=== PATIENT | female | born 1965 | race Caucasian/White ===

== ENCOUNTER 2023-09-07 10:23 | Outpatient (OUT) | payer OTHER, SELFPAY ==
--- NOTE | 2023-09-07 10:26 | MM_ITS ---
Patient Name: BHAKTI JEREZ MR#: [id number] : 1965 Exam Date: 09/07/2023 Ordering Doctor: DR TYESHA BALDERAS . RADIOLOGY REPORT PROCEDURE: MM TOMOSYNTHESIS SCREENING BI COMPARISON: MG MAMM SCREEN 3D BETTINA CAD, 08/17/2021. MG MAMM SCREEN 3D BETTINA CAD, 09/05/2022. INDICATIONS: Screening Calculator Name NCI Breast Cancer Risk Assessment Tool 5 Year Breast Cancer Risk 1.40% Lifetime Breast Cancer Risk 8.70% Personal Breast Cancer No Personal Ovarian Cancer No Treatments Excision Family Cancers None LOCATION: [facility] BREAST COMPOSITION: Extremely dense, which lowers the sensitivity of mammography. FINDINGS: DIAGNOSTIC CATEGORY 2--BENIGN FINDING. NO CHANGE FROM COMPARISON. Scattered benign-appearing lymph nodes are present. RIGHT BREAST: No significant suspicious finding. LEFT BREAST: No significant suspicious finding. RECOMMENDATIONS: ROUTINE MAMMOGRAM AND CLINICAL EVALUATION IN 12 MONTHS. PLEASE NOTE: A NORMAL MAMMOGRAM DOES NOT EXCLUDE THE POSSIBILITY OF BREAST CANCER. A CLINICALLY SUSPICIOUS PALPABLE LUMP SHOULD BE BIOPSIED. Dictated by: Canelo Saunders MD on 09/07/2023 at 13:53 Approved by: Canelo Saunders MD on 09/07/2023 at 13:56
== END 2023-09-07 10:24 | disposition home or self-care (01) ==
LOC: MAMMO 10:23
PROVIDERS: PCP Family Medicine; Visit Provider Family Medicine
DX: Z12.31 Encounter for screening mammogram for malignant neoplasm of breast (principal)
CPT/HCPCS: 77063; 77067